=== PATIENT | male | born 1965 | race Caucasian/White ===

== ENCOUNTER 2019-09-13 16:41 | Inpatient (IN) | payer MEDICAID ==
[~2019-09-13] VITALS: Ht 188 cm; Wt 75.3 kg
[~2019-09-13 16:41] MED LIST: COR3 PO; FURO10VI3 PO; LINA5TAB PO; METF-416 PO; METO2.5T14 PO; SIMV-46 PO
[2019-09-13] MEDS ORDERED: ONDANSETRON HCL 4MG/2ML INJ IV STA (17:56)
[2019-09-13] MEDS ORDERED: VISCOUS LIDOCAINE 2% 15 ML UDC PO ONE (18:00)
[2019-09-13] MEDS ORDERED: MAGNESIUM/ALUMINUM HYDROXIDE/SIMETHICONE 30ML UDC PO ONE (18:00)
[2019-09-13 19:02] LABS: CHLORIDE 98 mEq/L (98-107)
[2019-09-13 19:03] LABS: BASOPHILS % 0.7 % (0.0-2.0); EOSINOPHILS % 1.6 % (0.0-5.0); HEMOGLOBIN. 15.3 g/dL (14.0-18.0); LYMPHOCYTES % 20.8 % (20.0-50.0); MEAN CORPUSCULAR HEMOGLOBIN 27.6 pg (28.0-32.0); MEAN CORPUSCULAR VOLUME 84.6 fL (80.0-94.0); MEAN PLATELET VOLUME 9.7 fl (7.4-10.4); MONOCYTES % 11.4 % (2.0-8.0); NEUTROPHILS % 65.5 % (40.0-76.0); PLATELET 136 x1000/uL (130-400); RED BLOOD CELL COUNT 5.55 mill/uL (4.7-6.1); RED CELL DISTRIBUTION WIDTH 15.3 % (11.6-14.6)
[2019-09-13] MEDS ORDERED: FUROSEMIDE 20MG/2ML VIAL IVP ONE (21:00)
[2019-09-13 23:50] VITALS: BP 113/71
[2019-09-14 04:00] VITALS: BP 105/62
[2019-09-14] MEDS ORDERED: ASPI-1497 MT (05:15)
[2019-09-14] MEDS ORDERED: VITA1CAP MT (05:15)
[2019-09-14] MEDS ORDERED: SPIR25TA MT (05:15)
[2019-09-14] MEDS ORDERED: DEXTROSE 50% WATER 50ML SYRINGE IV PRN (06:30)
[2019-09-14] MEDS ORDERED: ACETAMINOPHEN 325MG TABLET PO PRN (06:30)
[2019-09-14] MEDS: BLOOD SUGAR DIAGNOSTIC STRIP TEST SCH ×4 (06:31→21:40)
[2019-09-14] MEDS: INSULIN LISPRO 100 UNITS/ML SUBCUT SCH ×4 (06:58→21:00)
[2019-09-14 08:00] VITALS: BP 104/59
[2019-09-14] MEDS: THIAMINE HCL 100MG TABLET PO SCH (08:07)
[2019-09-14] MEDS: FUROSEMIDE 40MG/4ML VIAL IVP SCH ×2 (08:07→17:27)
[2019-09-14] MEDS: ASPIRIN 81MG TABLET PO SCH (08:08)
[2019-09-14] MEDS: CARVEDILOL 3.125 MG TABLET PO SCH ×2 (08:09→21:00)
[2019-09-14] MEDS: SPIRONOLACTONE 25MG TABLET PO SCH ×2 (08:09→21:41)
[2019-09-14 08:38] LABS: HEMATOCRIT 43.4 % (42.0-52.0); HEMOGLOBIN 14.4 g/dL (14.0-18.0); MEAN CORPUSCULAR HEMOGLOBIN 27.6 pg (28.0-32.0); MEAN CORPUSCULAR VOLUME 82.9 fL (80.0-94.0); PLATELET 134 x1000/uL (130-400); RED BLOOD CELL COUNT 5.23 mill/uL (4.7-6.1); RED CELL DISTRIBUTION WIDTH 14.9 % (11.6-14.6)
[2019-09-14 08:46] LABS: INR 1.2; PROTHROMBIN TIME 12.7 sec (9.6-11.0)
[2019-09-14 08:53] LABS: CHLORIDE 98 mEq/L (98-107)
[2019-09-14 09:00] LABS: LDL CHOLESTEROL 64 mg/dL (5-100)
[2019-09-14] MEDS ORDERED: METOLAZONE 2.5MG TABLET PO SCH (09:00)
[2019-09-14 09:01] LABS: HDL CHOLESTEROL 38 mg/dL (40-59)
[2019-09-14] MEDS: ENOXAPARIN 40MG/0.4ML SYR SUBCUT SCH (10:22)
[2019-09-14 12:00] VITALS: BP 110/64
[2019-09-14] MEDS: POTASSIUM CHLORIDE 20MEQ TABLET SR PO SCH (14:47)
[2019-09-14 16:00] VITALS: BP 118/74
[2019-09-14 20:00] VITALS: BP 108/67
[2019-09-14] MEDS: OMEPRAZOLE 20MG CAPSULE EXTENDED RELEASE PO SCH (21:41)
[2019-09-14 22:51] LABS: CLARITY URINE CLEAR (CLEAR); COLOR URINE YELLOW (YELLOW); KETONES URINE NEGATIVE (NEGATIVE); LEUKOCYTE ESTERASE URINE NEGATIVE (NEGATIVE); NITRITE URINE NEGATIVE (NEGATIVE); OCCULT BLOOD URINE TRACE (NEGATIVE); PH URINE 5.5 (4.5-8.0); PROTEIN URINE NEGATIVE (NEGATIVE)
[2019-09-15] VITALS: BP 110/58
[2019-09-15 04:00] VITALS: BP 116/69
[2019-09-15 05:36] LABS: BASOPHILS % 0.6 % (0.0-2.0); EOSINOPHILS % 1.2 % (0.0-5.0); HEMATOCRIT. 42.2 % (42.0-52.0); HEMOGLOBIN. 14.1 g/dL (14.0-18.0); LYMPHOCYTES % 20.7 % (20.0-50.0); MEAN CORPUSCULAR HEMOGLOBIN 27.8 pg (28.0-32.0); MEAN CORPUSCULAR VOLUME 83.3 fL (80.0-94.0); MEAN PLATELET VOLUME 9.5 fl (7.4-10.4); NEUTROPHILS % 65.5 % (40.0-76.0); PLATELET 156 x1000/uL (130-400); RED BLOOD CELL COUNT 5.07 mill/uL (4.7-6.1); RED CELL DISTRIBUTION WIDTH 14.8 % (11.6-14.6)
[2019-09-15] MEDS: OMEPRAZOLE 20MG CAPSULE EXTENDED RELEASE PO SCH (06:27)
[2019-09-15] MEDS: BLOOD SUGAR DIAGNOSTIC STRIP TEST SCH ×2 (06:56→13:27)
[2019-09-15] MEDS: INSULIN LISPRO 100 UNITS/ML SUBCUT SCH ×2 (07:59→13:31)
[2019-09-15 08:00] VITALS: BP 109/68
[2019-09-15] MEDS: ASPIRIN 81MG TABLET PO SCH (08:58)
[2019-09-15] MEDS: THIAMINE HCL 100MG TABLET PO SCH (08:58)
[2019-09-15] MEDS: POTASSIUM CHLORIDE 20MEQ TABLET SR PO SCH (08:58)
[2019-09-15] MEDS: ENOXAPARIN 40MG/0.4ML SYR SUBCUT SCH (08:58)
[2019-09-15] MEDS: SPIRONOLACTONE 25MG TABLET PO SCH (08:59)
[2019-09-15] MEDS: FUROSEMIDE 40MG/4ML VIAL IVP SCH (08:59)
[2019-09-15] MEDS: CARVEDILOL 3.125 MG TABLET PO SCH (08:59)
[2019-09-15] MEDS ORDERED: METOLAZONE 2.5MG TABLET PO SCH (09:00)
[2019-09-15 12:00] VITALS: BP 111/71
[2019-09-15] MEDS ORDERED: OMEP20CA14 PO (12:28)
[2019-09-15] MEDS ORDERED: METO2.5T14 PO (12:28)
[2019-09-15] MEDS ORDERED: FURO40TA5 MT (12:28)
[2019-09-15 13:40] VITALS: BP 109/68
[2019-09-16] MEDS ORDERED: FAMOTIDINE 20MG TABLET PO SCH (09:00)
[2019-09-16] MEDS ORDERED: FUROSEMIDE 40MG/4ML VIAL IVP SCH (09:00)
== END 2019-09-15 14:19 | disposition home or self-care (01) | DRG 194 ==
LOC: ER 16:41 → 7WST 20:35 → EDBEDREQ 20:49 → ENRESERV 22:36
PROVIDERS: ADMIT Internal Medicine; ATTEND Internal Medicine
DX: I13.0 Hypertensive heart and chronic kidney disease with heart failure and stage 1 through stage 4 chronic kidney disease, or unspecified chronic kidney disease (principal); J96.91 Respiratory failure, unspecified with hypoxia; E44.0 Moderate protein-calorie malnutrition; N17.9 Acute kidney failure, unspecified; N18.3 Chronic kidney disease, stage 3 (moderate); I42.9 Cardiomyopathy, unspecified; E87.6 Hypokalemia; I50.23 Acute on chronic systolic (congestive) heart failure; E87.1 Hypo-osmolality and hyponatremia; E11.22 Type 2 diabetes mellitus with diabetic chronic kidney disease; K21.9 Gastro-esophageal reflux disease without esophagitis; Z68.21 Body mass index [BMI] 21.0-21.9, adult; Z95.810 Presence of automatic (implantable) cardiac defibrillator; Z82.49 Family history of ischemic heart disease and other diseases of the circulatory system
CPT/HCPCS: 36415; 71045; 74176; 80048; 80053; 80061; 81003; 82962; 83036; 83735; 83880; 84443; 84484; 85025; 85027; 93005; 93306; 96374; 99285; J1650; J1815; J1940; J2405

== ENCOUNTER 2020-08-16 12:07 | Emergency (ER) | payer MEDICAID, MEDICARE ==
[~2020-08-16] VITALS: Ht 185.4 cm; Wt 77.0 kg
[~2020-08-16 12:07] MED LIST changes: +ASPI-1497 MT; +FURO40TA5 MT; -LINA5TAB PO; -METF-416 PO; -METO2.5T14 PO; +METO2.5T2 PO; +OMEP20CA14 PO; -SIMV-46 PO; +SPIR25TA MT; +VITA1CAP MT
[2020-08-16] MEDS ORDERED: FUROSEMIDE 100MG/10ML VIAL IVP ONE (12:45)
[2020-08-16 13:16] LABS: BASOPHILS % 0.4 % (0.0-2.0); EOSINOPHILS % 1.7 % (0.0-5.0); HEMATOCRIT. 46.8 % (42.0-52.0); HEMOGLOBIN. 15.3 g/dL (14.0-18.0); LYMPHOCYTES % 18.7 % (20.0-50.0); MEAN CORPUSCULAR HEMOGLOBIN 27.6 pg (28.0-32.0); MEAN CORPUSCULAR VOLUME 84.6 fL (80.0-94.0); MEAN PLATELET VOLUME 9.6 fl (7.4-10.4); MONOCYTES % 7.5 % (2.0-8.0); NEUTROPHILS % 71.7 % (40.0-76.0); PLATELET 162 x1000/uL (130-400); RED BLOOD CELL COUNT 5.53 mill/uL (4.7-6.1); RED CELL DISTRIBUTION WIDTH 15.4 % (11.6-14.6)
[2020-08-16 13:23] LABS: CHLORIDE 93 mEq/L (98-107)
[2020-08-16] MEDS ORDERED: POTASSIUM CHLORIDE INJ 40 MEQ in DEXT 5% WATER 250 ML IV SCH (15:00)
[2020-08-16 20:52] VITALS: BP 116/70
== END 2020-08-16 21:44 | disposition short-term general hospital (02) ==
LOC: ER 12:07 → EDBEDREQ 12:46 → EDBEDREQTM 13:55 → ER 21:44 → CANBEDREQ 22:10
DX: I13.0 Hypertensive heart and chronic kidney disease with heart failure and stage 1 through stage 4 chronic kidney disease, or unspecified chronic kidney disease (principal); E11.22 Type 2 diabetes mellitus with diabetic chronic kidney disease; N18.9 Chronic kidney disease, unspecified; I50.9 Heart failure, unspecified; R06.00 Dyspnea, unspecified; Z03.818 Encounter for observation for suspected exposure to other biological agents ruled out; Z79.82 Long term (current) use of aspirin
CPT/HCPCS: 36415; 71045; 80048; 80053; 83735; 83880; 84484; 85025; 93005; 96365; 96366; 96375; 99285; C9803; J1940; J3480; J7060; U0003